=== PATIENT | female | born 1980 | race Caucasian/White ===

== ENCOUNTER 2016-12-14 19:00 | Inpatient (IN) | payer OTHER ==
[~2016-12-14] VITALS: Ht 160 cm; Wt 62.6 kg
--- NOTE | ~2016-12-14 | PN ---
Unit #: [id number] #: [id number] Patient: VIJAYA BUSTAMANTE [id number] [facility] [address] [place] [address] [id number] I MR#: [id number] NAME: VIJAYA BUSTAMANTE ROOM: [facility] Age: 35 Sex: F Admission Date: 12/14/2016 : 1980 Attending Physician: Radha Muir M.D. Admitting Physician: Radha Muir M.D. Primary Care Physician: Primary Care Physician Betzy FUENTES PROGRESS NOTES DATE December 18, 2016 DISCUSSION Ms. Bustamante is a 25-year-old white female, who was seen today and chart was reviewed and the case was discussed with the staff. The patient has been anxious, withdrawn, and rather seclusive to herself. She has been calm and cooperative with improvement in her condition and she has been taking the medications and tolerating them fairly well with no reported side effects. MENTAL STATUS EXAMINATION Young white female, who was casually dressed with fair personal hygiene and appears to be in no acute distress or discomfort. She was awake and alert on interaction with intact orientation. Her mood was anxious with a congruent affect. Her speech is slow and goal-directed. She denies any suicidal or homicidal ideations. Her insight and judgment remain slightly impaired. TREATMENT PLAN 1. We will continue her on her current medications and treatment protocol, and will monitor her response to the medications, and make further adjustments as needed. 2. We will continue to followup. Dictated by... Cori Cisneros/samy TD: 12/19/2016 06:00 JOB #: [id number] Unit #: [id number] #: [id number] Patient: VIJAYA BUSTAMANTE PROGRESS NOTES Page 1 of 1 X Radha Muir MD X PROGRESS NOTE
--- NOTE | ~2016-12-14 | PN ---
Unit #: [id number] #: [id number] Patient: VIJAYA BUSTAMANTE [id number] [facility] [address] [place] [address] [id number] I MR#: [id number] NAME: VIJAYA BUSTAMANTE ROOM: [facility] Age: 35 Sex: F Admission Date: 12/14/2016 : 1980 Attending Physician: Radha Muir M.D. Admitting Physician: Radha Muir M.D. Primary Care Physician: Primary Care Physician Betzy FUENTES PROGRESS NOTES DATE OF SERVICE: 12/17/2016 SUBJECTIVE Ms. Bustamante is a 35-year-old white female who was seen today and chart was reviewed, and case was discussed with the staff. She has been anxious and withdrawn, and rather seclusive to herself. Meanwhile, she has been cooperative with treatment recommendations and has been taking the medications and tolerating them fairly well with no reported side effects. MENTAL STATUS EXAMINATION Young white female who casually dressed with fair personal hygiene, appears to be in no acute distress or discomfort. She was awake and alert with intact orientation. Her mood was anxious with a congruent affect. She denies any suicidal or homicidal ideations. Her insight and judgment remain slightly impaired. TREATMENT PLAN 1. We will continue on her current medications and treatment protocol. We will monitor her response to the medications and make further adjustments as needed. 2. We will continue to follow up. Dictated by... Cori Cisneros/jenny TD: 12/17/2016 19:26 JOB #: [id number] [facility] PROGRESS NOTES Page 1 of 1 X Radha Muir MD PROGRESS NOTE
--- NOTE | ~2016-12-14 | HP ---
Unit #: [id number] #: [id number] Patient: MARIAH BUSTAMANTE [id number] [place] [address] [id number] I MR#: [id number] NAME: MARIAH BUSTAMANTE ROOM: 86 Age: 35 Sex: F Admission Date: 12/14/2016 : 1980 Attending Physician: Radha Muir M.D. Admitting Physician: Radha Muir M.D. Primary Care Physician: Primary Care Physician No HISTORY AND PHYSICAL HISTORY OF PRESENT ILLNESS Mariah is a 35 year old admitted to [facility] because of her continued drug use. PAST MEDICAL HISTORY 1. 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 2. Hepatitis C. 3. History of withdrawal seizures, benzodiazepines. PAST SURGICAL HISTORY Nothing reported. ALLERGIES No known drug allergies. SOCIAL HISTORY Smokes 1 pack per day. Denies alcohol. Admits to a long history of opioid abuse to include IV heroin. She also has a history of abusing benzodiazepines. FAMILY HISTORY Medically noncontributory. REVIEW OF SYSTEMS CONSTITUTIONAL: No fever or chills. HEENT: Denies any sore throat, ear pain or runny nose. CARDIOVASCULAR: Denies chest pain, irregular heart rhythm or palpitations. CHEST: Denies shortness of breath or cough. No hemoptysis. GASTROINTESTINAL: Denies nausea, vomiting, diarrhea or chronic constipation. ENDOCRINE: Denies history of increased thirst or urination. No recent significant weight loss or gain. GENITOURINARY: Denies dysuria, frequency, or hematuria. SKIN: Denies any rashes. HEMATOLOGIC: Denies history of increased bleeding or bruising. MUSCULOSKELETAL: Denies any hot, swollen joints. No generalized muscle pain. NEUROLOGIC: Denies problems with vision or speech. No frequent, severe headaches. No numbness, tingling or weakness in any extremities. Denies loss of bladder or bowel control. CURRENT MEDICATIONS Unit #: [id number] #: [id number] Patient: MARIAH BUSTAMANTE Detox protocol. PHYSICAL EXAMINATION GENERAL: Alert, well-nourished, in no apparent distress. VITAL SIGNS: Blood pressure 110/68, heart rate 80, respirations 16, temperature 98.6. WEIGHT: 138. HEIGHT: 5 feet 3 inches. SKIN: Warm and dry without rash or lesion. HEENT: Normocephalic. TMs not viewed. Oral and nasal passages clear. Conjunctivae clear. PERRLA. EOMs intact. NECK: Supple without lymphadenopathy or thyromegaly. HEART: Regular rate and rhythm without murmur. LUNGS: Clear. ABDOMEN: Soft, nontender. : Not done. EXTREMITIES: No evidence of cyanosis, clubbing or edema. Moves all without focal deficit. NEUROLOGICAL: Grossly within normal limits. Cranial Nerves: II: Visual nair are intact. III, IV AND : Extraocular movements are intact. Pupils are equal, round and reactive to light. V: Facial sensation is grossly normal. VII: Facial movements and expression are normal. VIII: Auditory acuity grossly intact. IX, X: Uvula is midline. Phonation is normal. XI: Patient shrugs shoulders and turns head normally. XII: Tongue protrudes in the midline. Sensory and Motor Function: Sensory and motor sensation is grossly normal. Motor: moves all extremities well. Coordination: Gait is normal. Deep Tendon Reflexes: Intact. IMPRESSION Psychiatric admission. RECOMMENDATIONS PSYCHIATRIC: Per psychiatrist. MEDICAL: See no contraindication to participate in facility's activities. MEDICAL PROGNOSIS Good. MEDICAL CONDITION Stable. Dictated by... Juju Fonseca P.A.-C. for Cori Lam/arlene TD: 12/15/2016 21:27 JOB #: [id number] Unit #: [id number] #: [id number] Patient: MARIAH BUSTAMANTE HISTORY AND PHYSICAL Page 1 of 1 X Juju Fonseca HISTORY AND PHYSICAL
--- NOTE | ~2016-12-14 | PN ---
Unit #: [id number] #: [id number] Patient: VIJAYA BUSTAMANTE [id number] [facility] [address] [place] [address] [id number] I MR#: [id number] NAME: VIJAYA BUSTAMANTE ROOM: [facility] Age: 35 Sex: F Admission Date: 12/14/2016 : 1980 Attending Physician: Radha Muir M.D. Admitting Physician: Radha Muir M.D. Primary Care Physician: Primary Care Physician Betzy FUENTES PROGRESS NOTES DATE 12/16/2016 DISCUSSION Ms. Bustamante is a 35-year-old white female who was seen today and chart was reviewed and case was discussed with the staff. She remains anxious, withdrawn, unkempt, disheveled and seclusive to herself and unable to carry on any meaningful conversation and has been exhibiting some significant symptoms and unable to function or perform activities of daily living. Meanwhile, she has been taking medications and tolerating them fairly well with no reported side effects. MENTAL STATUS EXAMINATION Young white female who was casually dressed with fair personal hygiene and appears to be in no acute distress or discomfort. She was awake and alert with intact orientation. Her mood was anxious and depressed with congruent affect. She reports having suicidal ideation but denies any homicidal ideations and her insight and judgement remains slightly impaired. TREATMENT PLAN 1. Will continue on current medications and treatment protocol. Will monitor her response to the medications and make further adjustments as needed. 2. Will continue to follow up. Dictated by... Cori Cisneros/arlene TD: 12/18/2016 08:15 JOB #: [id number] Unit #: [id number] #: [id number] Patient: VIJAYA BUSTAMANTE PROGRESS NOTES Page 1 of 1 X Radha Muir MD PROGRESS NOTE
--- NOTE | ~2016-12-14 | PA ---
Unit #: [id number] #: [id number] Patient: [facility]ARTE [id number] [facility] [address] [place] [address] [id number] I MR#: [id number] NAME: VIJAYA RODARTE ROOM: [facility] Age: 35 Sex: F Admission Date: 12/14/2016 : 1980 Date of Assessment: Attending Physician: Radha Muir M.D. Admitting Physician: Radha Muir M.D. PSYCHIATRIC ASSESSMENT DATE OF SERVICE 12/15/2016. IDENTIFYING DATA Ms. Rodarte is a 35-year-old, white female, who was self-referred to the hospital and brought to the hospital accompanied by her mother. CHIEF COMPLAINT "I've been using 0.5 to 1 g of IV heroin daily." HISTORY OF PRESENT ILLNESS Ms. Rodarte is a 35-year-old white female with a history of substance abuse and mood disorder, who was self-referred to the hospital stating that she has been using up to a gram of IV heroin on a daily basis and that she has been using for the past 10 years and her last use was this afternoon and reports that she uses a gram of methamphetamine every few days along with heroin and reports that her last use was 4 days ago and also reports that she takes a bar of Xanax on a weekly basis and last use was a week ago and reports she smokes a blunt of cannabis with last use today and does report increasing depression, anxiety, irritability, significant consequences because of her addiction with feelings of hopelessness and helplessness, suicidal ideations and plan to overdose and does have a history of suicidal ideations in the past as well. SUBSTANCE ABUSE HISTORY The patient reports history of alcohol, cannabis, cocaine, opioids, and benzodiazepines, and methamphetamine abuse and dependence, though she reports heroin to be her drug of choice. PAST PSYCHIATRIC HISTORY The patient has had a history of inpatient chemical dependency treatment at [facility], [place], and review of the medical records indicate currently she is not active in any treatment program, and is not seeing a psychiatrist, and is not taking any psychotropic medications. PAST MEDICAL HISTORY Hepatitis C. ALLERGIES No known medication allergies. CURRENT MEDICATIONS Unit #: [id number] #: [id number] Patient: VIJAYA RODARTE None. PERSONAL AND SOCIAL HISTORY A 35-year-old white female, who reports that she is single, unemployed, and essentially homeless and has poor and unstable living situation. MENTAL STATUS EXAMINATION Young white female, who was casually dressed with fair personal hygiene, appears to be in slight distress and discomfort. She was awake and alert on interaction with intact orientation. Her mood was anxious with a congruent affect. Her speech was slow and restricted in content. Her thought processes were disorganized with some looseness of associations and flight of ideas. Her insight and judgment remain significantly impaired. DIAGNOSTIC IMPRESSION Psychiatric: Opioid dependence, moderate and acute withdrawals; methamphetamine dependence, moderate; benzodiazepine abuse, moderate. Medical: None. Stressors: Moderate psychosocial stressors. TREATMENT PLAN 1. The patient has presented with a history of mood disorder and substance abuse and dependence and has been decompensating and will need inpatient hospitalization for safety and stabilization. We will start her back on her home medications. We will adjust the medications and monitor response. 2. Supportive therapy was provided to the patient. 3. Safe, structured, and nourishing environment will be reported. ESTIMATED LENGTH OF STAY 4 to 5 days. ABILITY TO HELP SELF Limited. WILLINGNESS TO HELP SELF The patient appears to be willing to help self. STRENGTHS 1. Communicative. 2. Cooperative. PROBLEMS 1. Chronic dysphoric symptoms. 2. Chronic chemical dependency. 3. Poor social support system. DISCHARGE CRITERIA This will be contingent upon the patient's ability to go through detox without having any significant withdrawal symptoms as well as her ability to stay safe to herself, particularly after discharge from the hospital. Dictated by... Unit #: [id number] #: [id number] Patient: ZAKIYA RODARTECori Segovia/jenny TD: 12/15/2016 07:36 JOB #: [id number] PSYCHIATRIC ASSESSMENT Page 1 of 1 X Radha Muir MD X PSYCHIATRIC ASSESSMENT
--- NOTE | ~2016-12-14 | DS ---
Unit #: [id number] #: [id number] Patient: [facility]ODARTE [id number] [facility] [address] [place] [address] [id number] I MR#: [id number] NAME: VIJAYA RODARTE ROOM: [facility] Age: 35 Sex: F Admission Date: 12/14/2016 : 1980 Discharge Date: 12/19/2016 Attending Physician: Radha Muir M.D. Primary Care Physician: Primary Care Physician No DISCHARGE SUMMARY IDENTIFYING DATA Ms. Rodarte is a 35-year-old white female, who was self-referred to the hospital and was accompanied by her mother. DISCHARGE DIAGNOSES Psychiatric: Opioid dependence, moderate and acute withdrawals; methamphetamine dependence, moderate; benzodiazepine abuse, moderate. Medical: None. Stressors: Mild psychosocial stressors. HISTORY OF PRESENT ILLNESS Please see initial psychiatric evaluation for details. PAST PSYCHIATRIC HISTORY Please see initial psychiatric evaluation for details. PAST MEDICAL HISTORY Please see initial psychiatric evaluation for details. HOSPITAL COURSE [facility] and was oriented to the hospital environment. Routine p.r.n. medications were initiated, and she was started back on her home medications and detox protocol was initiated and she was closely monitored. She was taking medications regularly and was tolerating them fairly well and was able to show a decent and therapeutic response and was wanting to go to a long-term rehab level of care and social worker school was asked to be grateful followed by which, it was decided that she will be discharged home and will continue treatment on an outpatient basis. DISCHARGE MEDICATIONS None. DISCHARGE CONDITION Stable. PROGNOSIS Fair. Dictated by... Radha Muir M.D. Unit #: [id number] #: [id number] Patient: VIJAYA RODARTE IAA/modl TD: 12/19/2016 07:34 JOB #: [id number] DISCHARGE SUMMARY Page 1 of 1 X Radha Muir MD DISCHARGE SUMMARY
[~2016-12-14 19:00] MED LIST: AMOXICILLIN PO; AUGMENTIN PO; CIPRO PO; FLOXIN20 EA OP; IBUPROFEN PO; LORTAB 5/500 TA1 TA1 PO; VICODIN 5/500 T1 TAB PO
[2016-12-18 09:42] LABS: BASOPHIL# 0.1 X10e3 (0-0.3); BASOPHIL% 0.7 % (0-2.5); EOSINOPHIL# 0.2 X10e3 (0-0.7); EOSINOPHIL% 1.6 % (0.0-7.0); HEMATOCRIT 38.2 % (35.0-45.0); HEMOGLOBIN 12.7 gm/dL (12.0-16.0); LYMPHOCYTE# 2.9 X10e3 (1.0-3.5); LYMPHOCYTE% 27.9 % (17.0-45.0); MEAN CELL VOLUME 87.6 FL (83-96); MEAN CORPUSCULAR HEMOGLOBIN 29.1 PG (28-34); MEAN CORPUSCULAR HGB CONC 33.2 g/dL (30-36); MONOCYTE# 0.6 X10e3 (0-1.0); MONOCYTE% 5.6 % (3.0-12.0); NEUTROPHIL# 6.8 X10e3 (1.5-7.1); NEUTROPHIL% 64.2 % (40-75); PLATELET COUNT 337 X10e3 (140-420); RED BLOOD COUNT 4.36 X10e (3.90-5.30); WHITE BLOOD COUNT 10.6 X10e3 (4.0-10.5)
[2016-12-18 09:52] LABS: DIFF IND NO
[2016-12-18 10:03] LABS: ALBUMIN SERUM 3.2 g/dL (3.5-5.0); BILIRUBIN,TOTAL 0.2 mg/dL (0.2-2.0); BUN/CREATININE RATIO 23.33; CALCIUM SERUM 9.1 mg/dL (8.4-10.2); CREATININE SERUM 0.6 mg/dL (0.6-1.4); GLOM FILT RATE Estimated 119.8 mL/min (>60); POTASSIUM 4.2 mmol/L (3.5-5.1); PROTEIN TOTAL SERUM 6.5 g/dL (6.0-8.3)
== END 2016-12-19 09:55 | DRG 897 ==
LOC: P1E 21:34
PROVIDERS: Psychiatry & Neurology Psychiatry
PROC: HZ2ZZZZ Detoxification Services for Substance Abuse Treatment (ICD-10-PCS; principal; 2016-12-14)
DX: F11.23 Opioid dependence with withdrawal (principal); F15.20 Other stimulant dependence, uncomplicated; F19.10 Other psychoactive substance abuse, uncomplicated; B19.20 Unspecified viral hepatitis C without hepatic coma; F17.210 Nicotine dependence, cigarettes, uncomplicated
CPT/HCPCS: 80053; 84703; 85025